=== PATIENT | female | born 1960 ===

== ENCOUNTER 2019-04-09 14:37 | Outpatient (CLI) | payer OTHER | END 2019-04-09 14:40 | disposition home or self-care (01) | LOC: RAD 14:37 | DX: R07.89 Other chest pain (principal) ==

== ENCOUNTER 2019-04-11 13:39 | Outpatient (CLI) | payer OTHER | END 2019-04-11 14:02 | disposition home or self-care (01) | LOC: MAMO-SONO 13:39 | DX: N60.02 Solitary cyst of left breast (principal); Z12.39 Encounter for other screening for malignant neoplasm of breast; Z12.31 Encounter for screening mammogram for malignant neoplasm of breast; Z87.898 Personal history of other specified conditions ==